=== PATIENT | male | born 1945 | race Caucasian/White ===

== ENCOUNTER → 2020-04-08 09:45 | Outpatient (BNVA) | payer OTHER, SELFPAY | PROVIDERS: PCP Family Medicine; Referring Provider Internal Medicine; Visit Provider Psychiatry & Neurology Neurology | DX: G35 Multiple sclerosis (principal); M79.605 Pain in left leg; G60.9 Hereditary and idiopathic neuropathy, unspecified; R25.2 Cramp and spasm | CPT/HCPCS: 99205; G2212 ==

== ENCOUNTER 2020-08-03 12:21 | Outpatient (CLI) | payer OTHER, SELFPAY ==
[2020-08-03 12:28] VITALS: BP 159/94; PULSE 66; RESP 17; TEMP 37.1; O2SAT 99
--- NOTE | 2020-08-03 13:18 | DI.RAD_ITS ---
Exam(s) XR PAIN CLINIC LUMBAR SP 2V EXAM: XR PAIN CLINIC LUMBAR SP 2V CLINICAL HISTORY: Dx:Lumbar Radiculopathy TECHNIQUE: 2D and realtime digital imaging was performed. COMPARISON: No exams were available for comparison FINDINGS: C-arm fluoroscopy was utilized by Dr. Hutson during reported lumbar epidural steroid injection. Hard endoscopy technician y shows needle placement inferior to the pedicle of what appears to be L2 on the right. IMPRESSION: RADIATION DOSE DELIVERED: riley Germain= 17.3 mGy
[2020-08-03] MEDS: Omnipaque 240 MG/ML 50 ML BTL IJ (13:19)
[2020-08-03] MEDS: Dexamethasone Sod. Phos./Pres-Free 10 MG/ML VIAL IJ (13:19)
--- NOTE | 2020-08-03 13:19 | PDOC.PAIN_ITS ---
Pain Clinic Procedure Note Procedure Note Procedure Note: PROCEDURE NOTE Transforaminal Epidural Steroid Injection with Fluoroscopic Guidance at right L2 Chief Complaint: patient has history of MS, he reports onsent right groin pain, worse with bending forward. He also reports right buttock pain which is intolerable compared to right groin pain. He is status post decompressive laminectomy with L5-S1 inter-spacer and instrumented fusion by Dr Shetty in the past. He was seen by neurologist and Ms Kimberli Mackey in our pain clinic for right leg symptoms. Initially he reported diffuse right leg pain, but today he is very clear that most of the right leg pain invovles right groin and some anterior thigh. MRI L spine was done and report is available which demonstrates foraminal stenosis at L2-3 and L3-4. Given distribution of his right leg symptoms, I discussed with patient that we can either proceed with caudal LORA to help alleviate his lower back and buttock pain and plan for a dedicated right TFESI targeting the right L2-3 level at a latter date, patient reports severity of right groin/anterior thigh pain is much more pronounced compared to buttock pain. After discussion, plan made to move forward with diagnostic and possibly therapeutic TFESI on the right side. Pre-operative diagnosis: lumbar radiculopathy Post-operative diagnosis: same as above SEGUN MERCHANT has been referred to the [facility] for Lumbar Transforaminal Epidural Steroid Injection right L2-3 COMMENTS: Referring provider: Ms Kimberli Alfaro APRN Pre-procedure VAS:5/10 to the right leg. Follow up plan: if this fails to achieve significant pain relief to his right groin pain, would recommend further evaluation to see if this right leg symptom is a sequlae of multiple sclerosis. SEGUN MERCHANT was greeted by the nurse who verified patients name and . Patient was then taken to the fluoroscopy suite. SEGUN was interviewed and the medical record reviewed. There were no medical, pharmacologic, radiographic or other structural contraindications to attempting fluoroscopically guided transforaminal lumbar epidural steroid injection. The risks, benefits, and potential side effects were reviewed with the patient. Risk include, but not limited to, post dural puncture, headache, infection, nerve injury, allergic reaction, possible increase in symptoms over the ensuing 24 to 48 hours, and paralysis. The patient appeared to understand, questions were answered and the patient agreed to proceed. Once I obtained informed verbal consent, the printed consent form was signed by the patient and myself. Standard time-out procedure was performed. TECHNIQUE: After informed written consent was obtained the patient was placed in the prone position. The lumbar spine was prepped with chloraprep and draped. Sterile technique was observed during the entire procedure ( cap, gloves, and mask were worn). Vitals signs were monitored throughout the procedure. The right side was marked with a radioopaque marker. The skin and subcutaneous structures were anesthetized with lidocaine 1% to a total volume of 3 ML at each level. Under fluoroscopic guidance, in ipsilateral oblique view, co-axial approach, 22 gauge spinal needle(s) were advanced to the base of the L2. pedicle(s). The needle(s) were advanced to the superio-posterior aspect of the neural foramen under lateral view. Oblique and AP views were rechecked. Under AP view Omnipaque 240 {[id number]} cc's was injected while visualized with fluoroscopy. There was no evidence of intravascular uptake, the epidural space was delineated. 15 mg Dexamethasone was injected after negative aspiration, at each level, followed by lidocaine 1% 0.5-ML at each level. (49 cc of Omnipaque was wasted) Outcome: The patient tolerated the procedure well and had stable vital signs. The patient noted after getting up after the procedure that their right leg (specifically right groin) pain was at a 1 out of 10 level. Follow up plans and appointments were discussed with SEGUN . The patient was observed in the pain clinic and then discharged after having met discharge criteria to the care of a otr owner operator truck driver. The patient received written instructions as documented in nursing records. Disposition: SEGUN was discharged from the procedure suite without new neurological complaints. Follow-up: If Segun gets significant pain relief from today's injection, namely at least 50% pain reduction of the right groin, then TFESI can be repeated. If his right groin pain resolves and continues to have buttock pain, then he can be scheduled for caudal LORA. If he develops new pain pattern with associated leg spasms, stiffness and/or weakness, then he should follow up with his neurologist to discuss if MS is contributing to his current symptoms. I personally performed the entire procedure. Jennifer Hutson MD ABPN-subspecialty board certification in Pain Medicine Attending Physician-Pain Management
[2020-08-03 13:35] VITALS: BP 162/92; PULSE 74; RESP 19; O2SAT 97
== END 2020-08-03 12:22 | disposition home or self-care (01) ==
LOC: PC 12:21
PROVIDERS: PCP Family Medicine; Visit Provider Internal Medicine
DX: M54.16 Radiculopathy, lumbar region (principal)
CPT/HCPCS: 64483; 72100; Q9967

== ENCOUNTER 2020-09-30 10:06 | Outpatient (CLI) | payer OTHER, SELFPAY ==
--- NOTE | 2020-09-30 06:00 | DI.RAD_ITS ---
Exam(s) XR PAIN CLINIC LUMBAR SP 2V EXAM: XR PAIN CLINIC LUMBAR SP 2V CLINICAL HISTORY: Dx: Lumbar Radiculopathy TECHNIQUE: 2D and realtime digital imaging was performed. Radiologist not present. CONTRAST MATERIAL: None. COMPARISON: No exams were available for comparison FINDINGS: Fluoroscopy was provided for pain management therapy. Please refer to procedure report or details. Cumulative dose: Ka,r=not supplied mGy IMPRESSION: RADIATION DOSE DELIVERED:
[2020-09-30 10:11] VITALS: BP 158/78; PULSE 67; RESP 18; TEMP 37; O2SAT 99
[2020-09-30] MEDS: Omnipaque 240 MG/ML 50 ML BTL IJ (10:43)
[2020-09-30] MEDS: methylPREDNISolone ACETATE 80 MG/ML VIAL IJ (10:43)
[2020-09-30 10:47] VITALS: BP 154/90; PULSE 66; RESP 14; O2SAT 96
--- NOTE | 2020-09-30 13:45 | PDOC.PAIN_ITS ---
Pain Clinic Procedure Note Procedure Note Procedure Note: CAUDAL EPIDURAL STEROID WITH CATHETER INJECTION PROCEDURE NOTE COMMENTS: Prvious TFESI at right L2 with good relief of his right leg pain. Continues with low back pain and left leg pain. History of lumbar fusion at L5- S1. SEGUN MERCHANT has been referred to the [facility] for lumbar epidural steroid injection. Patient was greeted by the nurse who verified patients name and . Patient was then taken to the fluoroscopy suite. Patient was interviewed and the medical record reviewed. There were no medical, pharmacologic, radiographic, or other structural contraindications to attempting fluoroscopically guided lumbar epidural steroid injection. Risks and expected side effects as well as potential benefits of the procedure were reviewed and voiced concerns addressed. The patient consent form was signed and witnessed. Standard time-out procedure was performed. Patient was placed in the prone position on the fluoroscopy table and automated blood pressure cuff and pulse oximeter applied. The skin entry point for entering/approaching the epidural space at the sacral hiatus and marked. Following thorough chlorhexadine preparation of the skin and draping and 1% lidocaine infiltration of the skin entry point and subcutaneous tissues, a 17 gauge Touhy needle was placed under fluoroscopic guidance and with loss of resistance technique into the epidural space. Needle tip placement and depth were aided and confirmed by fluoroscopy. There was no paresthesia or return of blood or CSF through the needle. An Arrow cath was thread to the [ENTRY POINT] and 1 cc's of Omnipaque 240 was injected with clear epidural spread confirmed with fluoroscopy. 80mg depomedrol was injected. There was not any unusual discomfort expressed. Vital signs were stable throughout the procedure and were as recorded in nursing records. Follow up plans and appointments were discussed.Post procedure instruction was given as documented in nursing records and having met discharge criteria and was discharged from the [facility]. COMMENTS: This procedure can be completed up to 3 times per 12 months if it is helpful Jeremy Moreland DO, MPH Pain Management
== END 2020-09-30 10:07 | disposition home or self-care (01) ==
LOC: PC 10:06
PROVIDERS: PCP Family Medicine; Visit Provider Preventive Medicine Occupational Medicine
DX: M54.17 Radiculopathy, lumbosacral region (principal)
CPT/HCPCS: 62323; 72100; J1040; Q9967

== ENCOUNTER 2021-10-18 10:33 | Outpatient (CLI) | payer OTHER, SELFPAY ==
--- NOTE | 2021-10-18 06:00 | DI.RAD_ITS ---
Exam(s) XR PAIN CLINIC LUMBAR SP 2V EXAM: XR PAIN CLINIC LUMBAR SP 2V CLINICAL HISTORY: Dx: Lumbar radiculopathy. TECHNIQUE: 2D and realtime digital imaging was performed. CONTRAST MATERIAL: NA COMPARISON: No exams were available for comparison FINDINGS: Fluoroscopy was provided during pain management therapy performed by Dr. Moreland. See procedure report for details. IMPRESSION: RADIATION DOSE DELIVERED: Ka,r=15.62 mGy
[2021-10-18 10:55] VITALS: BP 135/93; PULSE 74; RESP 20; TEMP 36.8; O2SAT 97
[2021-10-18 11:27] VITALS: BP 157/92; PULSE 77; RESP 16; O2SAT 95
--- NOTE | 2021-10-18 11:30 | PDOC.PAIN ---
Pain Clinic Procedure Note Procedure Note Procedure Note: CAUDAL EPIDURAL STEROID WITH CATHETER INJECTION PROCEDURE NOTE COMMENTS: He was previously evaluated in the office. Pre-procedure pain VAS was 6/10. Dx: Lumbosacral radiculopathy SEGUN MERCHANT has been referred to the [facility] for lumbar epidural steroid injection. Patient was greeted by the nurse who verified the patient?s name and .? Patient was then taken to the fluoroscopy suite. The patient was interviewed and the medical record was reviewed.? There were no medical, pharmacologic, radiographic, or other structural contraindications to attempting fluoroscopically guided caudal epidural steroid injection. Risks and expected side effects as well as potential benefits of the procedure were reviewed and voiced concerns addressed.? The patient consent form was signed.? Standard time-out procedure was performed. The patient was placed in the prone position on the fluoroscopy table and automated blood pressure cuff, pulse oximeter, and 3 lead EKG was applied.? The skin entry point for entering/approaching the sacral hiatus was marked.? Following thorough chlorhexadine preparation of the skin and draping and 1% lidocaine infiltration of the skin entry point and subcutaneous tissues, a 17 gauge Touhy needle was placed under fluoroscopic guidance through the sacral hiatus.? Needle tip placement and depth were aided and confirmed by fluoroscopy. There was no paresthesia or return of blood or CSF through the needle. A 19G Arrow spinal catheter was threaded to the L5 height and 1 cc's of Omnipaque 240 was injected with clear epidural spread confirmed with fluoroscopy.? Aspiration was performed with no resulting blood or clear fluid. One cc of depomedrol (80 mg/cc) was injected.? This was followed by 2 cc of 1% Lidocaine to flush the catheter.?There was not any unusual discomfort expressed.? The needle and catheter were removed together without difficulty. Vital signs were stable throughout the procedure and were as recorded in nursing records.? Follow up plans and appointments were discussed.? Post procedure instruction was given as documented in nursing records and having met discharge criteria and was discharged from the [facility]. Post-procedure pain VAS = 0/10 Jeremy Moreland DO, MPH ABPMR-Pain Management [facility]-Center for Pain Management
[2021-10-18] MEDS: methylPREDNISolone ACETATE 80 MG/ML VIAL IJ (11:37)
[2021-10-18] MEDS: Omnipaque 240 MG/ML 50 ML BTL IJ (11:37)
== END 2021-10-18 10:34 | disposition home or self-care (01) ==
PROVIDERS: PCP Family Medicine; Visit Provider Preventive Medicine Occupational Medicine
DX: M54.17 Radiculopathy, lumbosacral region (principal)
CPT/HCPCS: 62323; 72100; J1040; Q9967

== ENCOUNTER 2022-06-27 01:25 | Outpatient (CLI) | payer OTHER, SELFPAY ==
--- NOTE | 2022-06-27 | DI.MRI_ITS ---
Exam(s) MR LUMBAR SPINE WO/W EXAM: MR LUMBAR SPINE WO/W CLINICAL HISTORY: LOW BACK PAIN, M54.50, PRIOR TO BEING SEEN FOR INJECTION FOR PAIN. TECHNIQUE: Multiplanar multisequence MRI of the Lumbar Spine was performed. CONTRAST MATERIAL: IV Contrast: 19 mL of Dotarem contrast administered. COMPARISON: MR MR LS SPINE W/WO CONTRAST from 06/30/2020 FINDINGS: Bones: The last intervertebral disc space is designated the L5/S1 level for the numbering purpose of this examination. The vertebral body heights are well maintained. There is a right convex curvature of the lumbar spine. There is posterior spinal surgery again seen at L4 and L5. This limits evaluatio n of the lower lumbar spine. There again seen round T1 and T2 hyperintense nodules in the lumbar spin e which may represent incidental hemangioma. Mild degenerative endplate signal changes are seen at mu ltiple levels. Cord: The conus tip ends at the T12-L1 level. It is of normal size and signal intensity. T12-L1: There is a mild diffuse disc bulge. There are hypertrophic changes of the facets which are as ymmetric, left greater than right. There is mild right and moderately severe left neural foraminal st enosis present. L1-2: There is a diffuse disc bulge. There are hypertrophic changes of the facets and ligamentum flav um. These all contribute to cause mild narrowing of the central spinal canal. There is mild right and moderately severe left neural foraminal stenosis. L2-3: There is a diffuse disc bulge. There are hypertrophic changes of the facets and ligamentum flav um. These all contribute to cause [id number] central spinal canal stenosis. There is marked rig ht and moderate left neural foraminal stenosis. L3-4: Evaluation is limited by the orthopedic hardware. There is a diffuse disc bulge. There is a que stion of central spinal canal narrowing. There appears to be bilateral marked neural foraminal stenos is. L4-5: Evaluation limited by artifact from the orthopedic hardware. There does appear to be bilateral neural foraminal narrowing. There may also be central spinal canal narrowing present. L5-S1: No disc herniations or bulges are present. No central spinal canal or neural foraminal stenosi s. Soft tissues: The visualized SI joints and sacrum are well maintained. The paraspinal soft tissues ar e unremarkable. There is no evidence of suspicious enhancement. IMPRESSION: 1. Examination limited by posterior spinal surgery at L4-L5. 2. 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 The findings are most clearly marked at the L2-L3 level. There is involvement at a ll levels of the lumbar spine with relative sparing at L5-S1. DATA REPOSITORY:
[2022-06-27 09:32] LABS: CREATININE 1.2 mg/dL (0.70-1.30)
[2022-06-27] MEDS: Normal Saline Flush 10 ML SYR IVP (09:43)
[2022-06-27] MEDS: Gadoterate meglumine 20 ML VIAL 19 ML IVP (09:44)
== END 2022-06-27 01:45 ==
PROVIDERS: PCP Family Medicine; Visit Provider Family Medicine
DX: M54.50 Low back pain, unspecified (principal); I10 Essential (primary) hypertension
CPT/HCPCS: 72158; 82565

== ENCOUNTER 2022-08-22 13:35 | Outpatient (CLI) | payer OTHER, SELFPAY ==
[2022-08-22 14:02] VITALS: BP 138/86; PULSE 100; RESP 20; TEMP 36.5; O2SAT 95
--- NOTE | 2022-08-22 14:50 | DI.RAD_ITS ---
Exam(s) XR PAIN CLINIC LUMBAR SP 2V EXAM: XR PAIN CLINIC LUMBAR SP 2V CLINICAL HISTORY: Dx: Lumbar Radiculopathy TECHNIQUE: 2D and realtime digital imaging was performed. CONTRAST MATERIAL: Refer to procedure report. COMPARISON: No exams were available for comparison FINDINGS: Fluoroscopy was provided for Dr. Moreland during the performance of a caudal epidural steroid injection. Please refer to the procedure report for complete details. Ka,r=10.2 mGy IMPRESSION:
[2022-08-22 14:52] VITALS: BP 131/87; PULSE 94; RESP 15; O2SAT 94
[2022-08-22] MEDS: Omnipaque 240 MG/ML 50 ML BTL IJ (14:52)
[2022-08-22] MEDS: methylPREDNISolone ACETATE 80 MG/ML VIAL IJ (14:52)
--- NOTE | 2022-08-22 14:55 | PDOC.PAIN_ITS ---
Date of service: 08/22/22 Time of Service: 14:55 Pain Managment Procedure Note Procedure Note Procedure Note: PROCEDURE NOTE CAUDAL EPIDURAL STEROID INJECTION Date of Service: August 22, 2022 Patient:? Abraham Kelly? Provider:? Jeremy Moreland DO, MPH Abraham Kelly? has been referred to the [facility] for caudal epidural steroid injection.? Pre-operative diagnosis: Lumbosacral Radiculopathy Post-operative diagnosis: Same Pre-Procedure Pain: VAS= 7/10. COMMENTS: He last had this procedure 2 years ago and had >1 year of relief. His same symptoms have returned. Abraham?was interviewed and the medical record was reviewed.? There were no medical, pharmacologic, radiographic or other structural contraindications to attempting fluoroscopically guided epidural steroid injection.? Risks and expected side effects as well as potential benefit of the procedure were reviewed with Rola, and the patient's voiced concerns were addressed.? The printed consent form was signed.? Standard time-out procedure was performed. Rola was placed in the prone position on the fluoroscopy table and automated blood pressure cuff and pulse oximeter applied.? The skin entry point for entering/approaching the epidural space by a caudal approach through the sacral hiatus ed identified with surgical skin marking.? Following thorough chlorhexidine preparation of the skin and draping and 1% lidocaine infiltration of the skin entry point and subcutaneous tissues, a 17 gauge Touhy needle was placed under fluoroscopic guidance? into the epidural space. Needle tip placement and depth were aided and confirmed by fluoroscopy in the lateral and AP position. There was no paresthesia or return of blood or CSF through the needle. 1 cc of Omnipaque 240 was injected with clear epidural spread confirmed with fluoroscopy. An Arrow 19G radio-opaque epidural catheter was advanced into the epidural space to the L5-S1 level and 2 cc of Omnipaque 240 was injected with clear epidural spread. 80 mg of Depomedrol was? injected. There was no unusual discomfort expressed by Abraham.? The needle and catheter were then flushed with 2 cc of 1% Lidocaine and they were removed together without difficulty. (48 cc of Omnipaque was wasted) Abraham's vital signs were stable throughout the procedure and were as recorded in the docflowsheet by the nursing staff.? If given, dosages of intravenous drugs for anxiolysis and analgesia were documented in MAR. Follow up plans and appointments were discussed with the patient.? Post procedure instruction was given as documented in nursing documentation and having met discharge criteria, the patient was discharged from the Pain Management Center. ? COMMENTS: No apparent complications.? Post-procedure pain: VAS= 0/10. If the patient receives at least 50% improvement in pain and/or function for at least 3 months, this procedure can be repeated. I personally completed the entire procedure. JEREMY MORELAND DO, MPH ABPM&R - Subspecialty board certification in Pain Medicine [facility]-Center for Pain Management
== END 2022-08-22 13:36 | disposition home or self-care (01) ==
LOC: PC 13:35
PROVIDERS: PCP Family Medicine; Visit Provider Preventive Medicine Occupational Medicine
DX: M54.17 Radiculopathy, lumbosacral region (principal); M54.50 Low back pain, unspecified
CPT/HCPCS: 62323; 72100; J1040; Q9967